=== PATIENT | male | born 1950 | race Caucasian/White ===

== ENCOUNTER 2016-10-04 07:44 | Day surgery (SDC) | payer OTHER ==
[~2016-10-04] VITALS: Ht 193 cm; Wt 140.4 kg
[2016-10-04 08:26] VITALS: BP 145/94; PULSE 70; TEMP 97.8
[2016-10-04] MEDS ORDERED: FLOMAX 0.40.4 MG/CAP PO (08:35)
[2016-10-04] MEDS ORDERED: PROSCAR 5MG5 MG PO (08:37)
[2016-10-04] MEDS ORDERED: TIMOLOL MALEATE5 M1 OP (08:38)
[2016-10-04 10:00] VITALS: BP 119/79; PULSE 72
[2016-10-04 10:15] VITALS: BP 112/84; PULSE 68
[2016-10-04 10:30] VITALS: BP 112/76; PULSE 62
== END 2016-10-04 10:40 | disposition home or self-care (01) ==
LOC: SDCO 07:44
DX: Z12.11 Encounter for screening for malignant neoplasm of colon (principal)
CPT/HCPCS: J2250; J3010; J7030